=== PATIENT | female | born 1960 | race Caucasian/White ===

== ENCOUNTER 2021-10-14 19:28 | Emergency (ER) | payer OTHER ==
[~2021-10-14] VITALS: Ht 160 cm; Wt 83.9 kg
[2021-10-14] MEDS ORDERED: LOSARTAN-HCTZ1 EAC2 PO (20:45)
[2021-10-14] MEDS ORDERED: OMEPRAZOLE MAGN20 MG PO (20:45)
[2021-10-14] MEDS ORDERED: ROSUVASTATIN CA20 MG PO (20:45)
[2021-10-14] MEDS ORDERED: LEVOTHYROXINE75 MC1 PO (20:45)
[2021-10-14] MEDS ORDERED: ANDRODERM1 EAC1 TD (20:46)
[2021-10-14] MEDS ORDERED: NORTRIPTYLINE H50 MG PO (20:46)
[2021-10-14] MEDS ORDERED: PROGESTERO50 MG/1 M1 IM (20:46)
[2021-10-14] MEDS ORDERED: HORIZANT300 MG PO (20:46)
[2021-10-15] MEDS ORDERED: CIPRO500 MG PO (01:48)
[2021-10-15] MEDS ORDERED: MIRALAX510 GM PO (01:48)
[2021-10-15] MEDS ORDERED: LEVSIN/SL0.125 MG SL (01:48)
== END 2021-10-15 01:53 ==
LOC: ER 19:28
DX: K59.00 Constipation, unspecified (principal); R10.84 Generalized abdominal pain; I10 Essential (primary) hypertension; E03.9 Hypothyroidism, unspecified; E78.00 Pure hypercholesterolemia, unspecified